=== PATIENT | female | born 1955 | race Hispanic/Latino ===

== ENCOUNTER 2016-10-30 18:32 | Emergency (ER) | payer OTHER, BC ==
[~2016-10-30] VITALS: Ht 167.6 cm; Wt 75.0 kg
[2016-10-30 19:05] LABS: EOSINOPHIL (%) 0.7 % (0-5); EOSINOPHIL COUNT 0.1 K/uL (0-0.3); HEMATOCRIT 39.4 % (36.0-46.0); IMMATURE GRANULOCYTE (%) 0.4 % (0.0-0.7); INSTRUMENT ABS NEUTROPHIL CT 4.1 K/uL; LYMPHOCYTE COUNT 2.4 K/uL (1.0-2.8); MCH 31.8 PG (29.0-34.0); MCHC 34.8 G/DL (30.0-36.0); MCV 91.4 FL (83-99); MEAN PLAT.VOLUME 9.9 uM^3 (9.5-12.4); MONOCYTE (%) 5.9 % (3-12); MONOCYTE COUNT 0.4 K/uL (0-0.8); NEUTROPHIL (%) 58.7 % (45-76); NEUTROPHIL COUNT 4.1 K/uL (1.8-6.4); PLATELET COUNT 169 K/uL (156-360); RBC DIS.WIDTH-SD 39.8 % (39-53); RED BLOOD COUNT 4.31 M/uL (3.80-5.20); WHITE BLOOD COUNT 6.9 K/uL (4.1-10.2)
[2016-10-30 19:13] LABS: AMYLASE 64 IU/L (1-118); CHLORIDE 108 mEq/L (99-109); POTASSIUM 4.1 mEq/L (3.7-5.4); SODIUM 138 mEq/L (136-147)
[2016-10-30 19:15] LABS: GLUCOSE 97 mg/dL (70-99)
[2016-10-30 19:16] LABS: ANION GAP 8 MEQ/L (2-14)
[2016-10-30 19:18] LABS: SERUM ETHYL ALCOHOL < 10 mg/dL
[2016-10-30 19:20] LABS: UREA NITROGEN (BUN) 10 mg/dL (9-23)
[2016-10-30 19:22] LABS: GFR ESTIMATE (CALCULATED) > 59 mL/min/; LIPASE 48 U/L (1.0-51.0)
[2016-10-30 19:29] LABS: ADD MIUA? YES; BILIRUBIN NEGATIVE; BLOOD NEGATIVE; COLOR YELLOW ((YELLOW)); GLUCOSE (STRIP) NEGATIVE; KETONES NEGATIVE; LEUKOCYTES NEGATIVE; NITRITE NEGATIVE; PROTEIN (STRIP) 30; SPECIFIC GRAVITY 1.011 (1.000-1.030); UROBILINOGEN 0.2 MG/DL (0.2-1.0)
[2016-10-30 19:38] LABS: AMPHETAMINE NEGATIVE (500 ng/mL); BARBITURATES NEGATIVE (200 ng/mL); BENZODIAZEPINES PRESUMPTIVE POSITIVE (150 ng/mL); COCAINE NEGATIVE (150 ng/mL); INTERNAL CONTROLS VALID? YES; METHADONE NEGATIVE (200 ng/mL); METHAMPHETAMINE NEGATIVE (500 ng/mL); OPIATES (MORPHINE) NEGATIVE (100 ng/mL); OXYCODONE NEGATIVE (100 ng/mL); PHENCYCLIDINE NEGATIVE (25 ng/mL); PROPOXYPHENE NEGATIVE (300 ng/mL); THC CANNABINOIDS NEGATIVE (50 ng/mL); TRICYCLIC ANTIDEPRESSANTS NEGATIVE (300 ng/mL)
[2016-10-30 19:39] LABS: ADD MEDTOX COMMENT Y
[2016-10-30 20:05] LABS: BENZODIAZEPINES, URINE SCREEN POSITIVE (200 ng/mL)
[2016-10-30 20:34] LABS: AMORPHOUS URATES CRYSTALS 1+; BACTERIA RARE /HPF; CASTS NONE SEEN /LPF; CRYSTALS PRESENT; EPITHELIAL CELLS RARE /HPF; MUCUS RARE /LPF; RED BLOOD CELLS NONE SEEN /HPF (0-5); UCUL ADDED? NO; WHITE BLOOD CELLS RARE /HPF (0-5)
[2016-10-30] MEDS ORDERED: PERCOCET 5/31 TABLET PO (21:06)
[2016-10-30] MEDS ORDERED: FLEXERIL10 MG PO (21:06)
[2016-10-30 21:26] VITALS: BP 134/77
== END 2016-10-30 21:28 | disposition home or self-care (01) ==
LOC: TRA 18:32
PROVIDERS: Physician Assistant
DX: S16.1XXA Strain of muscle, fascia and tendon at neck level, initial encounter (principal); S29.8XXA Other specified injuries of thorax, initial encounter; S39.81XA Other specified injuries of abdomen, initial encounter; S39.012A Strain of muscle, fascia and tendon of lower back, initial encounter; R51 Headache; V49.40XA Driver injured in collision with unspecified motor vehicles in traffic accident, initial encounter; B20 Human immunodeficiency virus [HIV] disease; F17.200 Nicotine dependence, unspecified, uncomplicated
CPT/HCPCS: 70450; 71260; 72125; 74177; 80048; 81003; 82150; 83690; 84999; 85025; 86900; 86901; 99281; 99285; G0480; J2270; J2405; J3010